=== PATIENT | female | born 1965 | race Caucasian/White ===

== ENCOUNTER 2020-12-28 09:07 | Emergency (ER) | payer OTHER, SELFPAY ==
[2020-12-28 09:25] VITALS: BP 133/81; PULSE 68; RESP 20; TEMP 36.6; O2SAT 100
--- NOTE | 2020-12-28 09:27 | ED.GENADULT ---
HPI - General Adult General Chief complaint: Back Pain/Injury Stated complaint: Wrist Pain Source: patient Mode of arrival: ambulatory Limitations: no limitations History of Present Illness HPI narrative: 55 y/o female. PMH Includes: None reported per client. Presents to [facility] today with acute complaints of RT upper back pain x past 72 hours. 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 She describes 'sharp' intermittent pain located to her RT upper back, worse with activity such as coughing or twisting . No falls or additional injury has been identified. No chest pain, palpitations, dyspnea. No paraesthesia or focal weakness. She is without additional acute complaints upon exam. Related Data Allergies Allergy/AdvReac Type Severity Reaction Status Date / Time ibuprofen [From Motrin] Allergy Dyspnea / Verified 12/28/20 09:29 SOB codeine AdvReac Nausea and Verified 12/28/20 09:29 Vomiting Review of Systems Review of Systems: Narrative: CONSTITUTIONAL: Denies fever, chills, sweats. EYES: Denies visual changes, redness, discharge. ENT: Denies rhinorrhea, congestion, sore throat, otalgia. CARDIOVASCULAR: Denies chest pain, palpitations, edema. RESPIRATORY: Denies dyspnea, wheezing, cough GASTROINTESTINAL: Denies abdominal pain, nausea, vomiting, diarrhea. GENITOURINARY: Denies dysuria, hematuria, abnormal discharge SKIN: Denies rash or itching. MUSCULOSKELETAL: Positive upper back pain. No additional joint pain, or myalgia. NEUROLOGIC: Denies numbness, or focal weakness. PSYCHIATRIC: Denies anxiety or depression. All systems reviewed & are unremarkable except as noted in HPI and below (HPI ) Exam Narrative: Exam Narrative: GENERAL: This is a well-nourished, well-developed patient, in no apparent distress. HEAD: normocephalic, atraumatic. EYES: PERRL. Sclera clear/white. Vision is grossly intact. EARS: External ears normal, auditory canals clear and without drainage, TMs normal without perforation. Hearing grossly intact. NOSE: External nose normal with no obvious nasal discharge, nares without redness, no rhinorrhea. THROAT: Mucous membranes moist, posterior pharynx clear. NECK: Neck supple, non-tender without lymphadenopathy, masses or thyromegaly. CARDIOVASCULAR: Regular rate and rhythm without murmurs, gallops, or rubs. No chest wall tenderness. Pulses preserved RUE, normal. RESPIRATORY: Clear to auscultation. Breath sounds equal bilaterally. No wheezes, rales, or rhonchi. GASTROINTESTINAL: Abdomen soft, non-tender, nondistended. Bowel sounds are active. No hepato-splenomegaly, or palpable masses. No guarding. SKIN: warm, intact with no suspicious lesions or rash, good texture and turgor. NEURO: awake, alert, and oriented to person, place and time. There were no obvious focal neurologic abnormalities. Sensation intact all sites tested. EXTREMITIES: Normal range of motion. No edema. BACK: Without deformity or crepitance. She exhibits reproducible tenderness located to RT cervical region. There is no midline spinal tenderness or abnormality. No nuchal rigidity. Course Course Emergency Course: 55 y/o Female. Acute complaints of RT upper back pain, with noted lifting as mechanism of injury. No neurovascular or bony deficits. Pain is reproducible to area. Physical exam consistent with musculoskeletal injury. Vital Signs Vital signs: Vital Signs Temperature 36.6 C 12/28/20 09:25 Pulse Rate 68 12/28/20 09:25 Respiratory Rate 20 12/28/20 09:25 Blood Pressure 133/81 12/28/20 09:25 Pulse Oximetry 100 12/28/20 09:25 Temperature 36.6 C 12/28/20 09:25 Pulse Rate 68 12/28/20 09:25 Respiratory Rate 20 12/28/20 09:25 Blood Pressure 133/81 12/28/20 09:25 Pulse Oximetry 100 12/28/20 09:25 Medical Decision Making MDM Narrative Medical decision making narrative: Musculoskeletal injury: -NSAID contraindicated:
== END 2020-12-28 10:04 | disposition home or self-care (01) ==
PROVIDERS: Emergency Provider Nurse Practitioner Adult Health; PCP Hospitalist
DX: M62.830 Muscle spasm of back (principal); S29.012A Strain of muscle and tendon of back wall of thorax, initial encounter; X50.0XXA Overexertion from strenuous movement or load, initial encounter
CPT/HCPCS: 99213; G0463

== ENCOUNTER 2025-10-10 07:54 | Outpatient (CLI) | payer BC, SELFPAY ==
--- NOTE | ~2025-10-10 | MMUS_ITS ---
PROCEDURE: US breast biopsy LT w image, MM post biopsy diagnostic LT, US breast bx add lesion LT CLINICAL HISTORY: 59-year-old female with history of left breast mass at 12:00, 2 cm FN previously biopsied with benign pathology however the lesion appears to have changed in the interval. In addition, there is a mass seen on the mammogram in the superior lateral left breast which was evaluated on this visit. Patient presents for ultrasound-guided core needle biopsy procedure. COMPARISON: 09/18/2025 and 09/08/2025 Following informed consent including risks, benefits, and possible complications, the patient was brought to the ultrasound suite. A time-out procedure was performed. A preliminary ultrasound of the left breast was performed, redemonstrating an hypoechoic mass with irregular margins containing biopsy clip located at 12:00, 2 cm from the nipple. In addition there is a 1.2 x 0.7 x 0.8 cm oval-shaped circumscribed hypoechoic mass seen at 2:00, 3 cm from the nipple which correlates to mammographic finding. The decision was made to biopsy both lesions. The patient was prepped and draped in the usual sterile fashion. 1% lidocaine was instilled into the subcutaneous tissues. 1% lidocaine without epinephrine was injected into the deep tissues around the lesion. Approximately 10cc lidocaine was administered. A small skin griselda was made. 4 core samples were obtained from the palpable lesion at 2:00 through a Lateral approach with a 14- gauge biopsy needle. A post biopsy Westwood Martin coil marker was placed at the biopsy site. The patient was prepped and draped in the usual sterile fashion. 1% lidocaine was instilled into the subcutaneous tissues. 1% lidocaine without epinephrine was injected into the deep tissues around the lesion. Approximately 10cc lidocaine was administered. A small skin griselda was made. 4 core samples were obtained from the palpable lesion at 12:00 through a Lateral approach with a 14- gauge biopsy needle. Postprocedural mammogram of the left breast in craniocaudal and mediolateral projections reveal all 2 post biopsy metal markers in good position. The patient tolerated the procedure well and was without immediate postprocedural complications. IMPRESSION: Successful ultrasound guided biopsy of 2 left breast masses. 2 post biopsy metal markers placed at the biopsy sites are in good position, which is seen on postprocedural mammogram. The patient tolerated the procedure well without immediate postprocedure complications. The patient was given postprocedural instructions and sent home in stable condition. Pathology report pending. Reviewed, dictated and finalized at location B. [facility] IMPRESSION: Successful ultrasound guided biopsy of 2 left breast masses. 2 post biopsy metal markers placed at the biopsy sites are in good position, which is seen on postprocedural mammogram. The patient tolerated the procedure well without immediate postprocedure compli cations. The patient was given postprocedural instructions and sent home in sta ble condition. Pathology report pending. IMPRESSION: Successful ultrasound guided biopsy of 2 left breast masses. 2 post biopsy metal markers placed at the biopsy sites are in good position, which is seen on postprocedural mammogram. The patient tolerated the procedure well without immediate postprocedure compli cations. The patient was given postprocedural instructions and sent home in sta ble condition. Pathology report pending.
--- OUTSIDE RECORDS SUMMARY | 2025-10-10 07:57 | XMS_ITS | Encounter Summary ---
Author Organization [facility] Healthcare Address [address] [place] [address] Care Team Providers Care Orthotist Or Prosthetist Name Role Phone Gustabo Ruelas MD Primary Care Provider [phone] Araceli Guillen NP Primary Care Provider Reason for Visit * Reason Onset Date Comments Scheduling Appointments 04/07/2021 Confirmi ng mammogram appt Encounter Details Date Type Department Care Team (Late st Contact Info) Description 04/07/2021 Telephone [facility] [address] [place] [phone] Uyen De La Fuente RT Scheduling Appointments (Confirming mammogram appt) Social History Tobacco Use Types Packs/Day Years Used Date Smoking Tobacco: Heavy Smoker Cigarettes 1 35 Smokeless Tobacco: Never Comments:Smoking History Pac ks/day: 0.5 Packs Alcohol Use Standard Drinks/Week Comments Never 0 (1 standard drink = 0.6 oz pur e alcohol) AUDIT-C Answer Date Recorded Q1: How often do you have a drink containing alc ohol? 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
--- OUTSIDE RECORDS SUMMARY | 2025-10-10 07:57 | XMS_ITS ---
Author Organization [facility] Address [address] [place] [address] Phone Care Team Providers Care Terrazzo Tile Setter Name Role Phone MELIDA BAEBE DO [phone] Problems Includes: Active, inactive, and resolved Problems No Active Problems Plan of Treatment Findings Encounter Date Go to the emergency room if condition worsens WALK IN PATIENT - ESTABLISHED PT with DAVID HARRIS DOORPERSON-BC 05/02/2023 Last Documented On 3 12:51PM ; [facility] Medication instruction WALK IN PATIENT - ESTABLISHED PT with DAVID HARRIS [facility] 05/02/2023 Last Documented On 3 12:51PM ; [facility] Ordered analgesics (non-ster oidal anti-inflammatory agents) WALK IN PATIENT - ESTABLISHED PT with DAVIDRHIANNON HARRIS DOORPERSON-BC 05/02/2023 Last Documented On 3 12:51PM ; [facility] Ordered follow-up visit as n eeded with an office visit. WALK IN PATIENT - ESTABLISHED PT with DAVID HARRIS [facility] 05/02/2023 Last Documented On 3 12:51PM ; [facility] Ordered home range of motion exercises WALK IN PATIENT - ESTABLISHED PT with DAVID HARRIS DOORPERSON-BC 05/02/2023 Last Documented On 3 12:51PM ; [facility] Ordered moist heat WALK IN PATIENT - ES TABLISHED PT with DAVIDRHIANNON HARRIS [facility] 05/02/2023 Last Documented On 3 12:51PM ; [facility] Ordered return to the clinic if condition worsens or new symptoms arise WALK IN PATIENT - ESTABLISHED PT with DAVID HARRIS DOORPERSON-BC 05/02/2023 Last Documented On 3 12:51PM ; [facility] Watch for signs/symptoms of infection WA LK IN PATIENT - ESTABLISHED PT with DAVID HARRIS DOORPERSON-BC 05/02/2023 Last Documented On 3 12:51PM ; [facility] Go to the emergency room if condition worsens WALK IN PATIENT - ESTABLISHED PT with DAVID HARRIS DOORPERSON-BC 07/17/2022 Last Documented On 2 5:08PM ; [facility] Ordered follow-up visit as n eeded with an office visit. WALK IN PATIENT - ESTABLISHED PT with DAVID HARRIS DOORPERSON-BC 07/17/2022 Last Documented On 2 5:08PM ; [facility] Ordered return to the clinic if condition worsens or new symptoms arise WALK IN PATIENT - ESTABLISHED PT with DAVID HARRIS DOORPERSON-BC 07/17/2022 Last Documented On 2 5:08PM ; [facility] Watch for signs/symptoms of infection WA LK IN PATIENT - ESTABLISHED PT with DAVID HARRIS DOORPERSON-BC 07/17/2022 Last Documented On 2 5:08PM ; [facility] Ordered patient will call fo r appointment as needed COVID SICK VISIT- ESTABLISHED PATIENT with DAVID HARRIS DOORPERSON-BC 09/15/2021 Last Documented On 1 9:04AM ; [facility] Ordered return to the clinic if condition worsens or new symptoms arise COVID SICK VISIT- ESTABLISHED PATIENT with DAVID HARRIS DOORPERSON-BC 09/15/2021 Last Documented On 1 9:04AM ; [facility] Pt to use prescription as or dered. Purpose of and use of medication discussed. COVID SICK VISIT- ESTABLISHED PATIENT with VINCE Andersen CHOPRA DOORPERSON-C 05/08/2021 Last Documented On 1 11:36AM ; [facility] Ordered patient to call if p roblem develops COVID SICK VISIT- ESTABLISHED PATIENT with VINCE Andersen [facility] DOORPERSON-C 05/08/2021 Last Documented On 1 11:36AM ; [facility] Ordered return to the clinic if condition worsens or new symptoms arise COVID SICK VISIT- ESTABLISHED PATIENT with VINCEWAYNE CHOPRA DOORPERSON-C 05/08/2021 Last Documented On 1 11:36AM ; [facility] Ordered follow-up visit in 3 -5 days by phone COVID SICK VISIT- ESTABLISHED PATIENT with HELENA MORALEZ DOORPERSON-C 03/13/2021 Last Documented On 1 5:44PM ; [facility] Ordered patient will call [facility] appointment as needed COVID SICK VISIT- ESTABLISHED PATIENT with HELENA MORALEZ DOORPERSON-C 03/13/2021 Last Documented On 1 5:44PM ; [facility] Ordered return to the clinic if condition worsens or new symptoms arise COVID SICK VISIT- ESTABLISHED PATIENT with HELENA MORALEZ DOORPERSON-C 03/13/2021 Last Documented On 1 5:44PM ; [facility] Ordered follow-up visit in 1 -2 weeks with an office visit or sooner if symptoms persist or worsen WALK-IN CLINIC SICK VISIT with DAVID HARRIS [facility] 07/13/2018 Last Documented On 8 4:06PM ; [facility] Ordered patient to call if p teri develops WALK-IN CLINIC SICK VISIT with DAVID HARRIS [facility] 07/13/2018 Last Documented On 8 4:06PM ; [facility] Ordered referred to primary care physician WALK-IN CLINIC SICK VISIT with DAVID HARRIS [facility] 07/13/2018 Last Documented On 8 4:06PM ; [facility] Ordered return to the clinic if condition worsens or new symptoms arise WALK-IN CLINIC SICK VISIT with DAVID HARRIS [facility] 07/13/2018 Last Documented On 8 4:06PM ; [facility] Ordered Transition in care, clinical summary provided WALK-IN CLINIC SICK VISIT with DAVID HARRIS [facility] 07/13/2018 Last Documented On 8 4:06PM ; [facility] Instructions to patient Go to the emergency room if condition worsens Last Documented On 3 12:47PM ; [facility] Watch for signs/symptoms of infection Last Documented On 3 12:47PM ; [facility] Watch for signs/symptoms of infection, return to the clinic if seen Last Documented On 3 12:47PM ; [facility] Go to the emergency room if condition worsens Last Documented On 2 5:04PM ; [facility] Watch for signs/symptoms of infection Last Documented On 2 5:04PM ; [facility] Watch for signs/symptoms of infection, return to the clinic if seen Last Documented On 2 5:03PM ; [facility] Instructions for patient Last Documented On 1 9:02AM ; [facility] Intervention and counseling on cessation of tobacco use Last Documented On 1 8:41AM ; [facility] Go to the emergency room if condition worsens Last Documented On 8 4:03PM ; [facility] Watch for signs/symptoms of infection Last Documented On 8 4:03PM ; [facility] Watch for signs/symptoms of infection, return to the clinic if seen Last Documented On 8 4:03PM ; [facility] Education and Decision Aids were provided during visit for: Patient education about anti biotics: need to finish even if feeling better Last Documented On 8 4:03PM ; [facility] Assessments Includes: Assessments for all patient encounters Findings Encounter Date Acute gouty arthropathy WALK IN PATIENT - ESTABLISHED PT with DAVID HARRIS DOORPERSON-BC 05/02/2023 Last Documented On 3 12:51PM ; [facility] Cerumen impaction in the right ear WALK IN PATIENT - ESTABLISHED PT with DAVID HARRIS DOORPERSON-BC 07/17/2022 Last Documented On 2 5:08PM ; [facility] Acute upper respiratory infection COVID SICK VISIT- ESTABLISHED PATIENT with DAVID HARRIS DOORPERSON-BC 09/15/2021 Last Documented On 1 9:04AM ; [facility] Acute sinusitis COVID SICK VISIT- ES TABLISHED PATIENT with VINCE CHOPRA DOORPERSON-C 05/08/2021 Last Documented On 1 11:36AM ; [facility] Urticaria allergic due to envenomation C OVID SICK VISIT- ESTABLISHED PATIENT with VINCE N CHOPRA DOORPERSON-C 05/08/2021 Last Documented On 1 11:36AM ; [facility] Acute pharyngitis COVID SICK VISIT- ES TABLISHED PATIENT with HELENA MORALEZ DOORPERSON-C 03/13/2021 Last Documented On 1 5:44PM ; [facility] Acute sinusitis WALK-IN CLINIC SICK VISIT with Kamlseh BISMARK HARRIS DOORPERSON-BC 07/13/2018 Last Documented On 8 4:06PM ; [facility] Acute sinusitis WALK-IN CLINIC SICK VISIT with Kamlesh ANAYANathaly Andersen CHOPRA DOORPERSON-C 11/02/2016 Last Documented On 6 3:09PM ; [facility] Assessment of cough WALK-IN CLINIC SICK VISIT with VINCE Andersen CHOPRA DOORPERSON-C 11/02/2016 Last Documented On 6 3:09PM ; [facility] Instructions Includes: Instructions for all patient encounters Instructions to patient Go to the emergency room if condition worsens Last Documented On 3 12:47PM ; [facility] Watch for signs/symptoms of infection Last Documented On 3 12:47PM ; [facility] Watch for signs/symptoms of infection, return to the clinic if seen Last Documented On 3 12:47PM ; [facility] Go to the emergency room if condition worsens Last Documented On 2 5:04PM ; [facility] Watch for signs/symptoms of infection Last Documented On 2 5:04PM ; [facility] Watch for signs/symptoms of infection, return to the clinic if seen Last Documented On 2 5:03PM ; [facility] Instructions for patient Last Documented On 1 9:02AM ; [facility] Intervention and counseling on cessation of tobacco use Last Documented On 1 8:41AM ; [facility] Go to the emergency room if condition worsens Last Documented On 8 4:03PM ; [facility] Watch for signs/symptoms of infection Last Documented On 8 4:03PM ; [facility] Watch for signs/symptoms of infection, return to the clinic if seen Last Documented On 8 4:03PM ; [facility] Education and Decision Aids were provided during visit for: Patient education about anti biotics: need to finish even if feeling better Last Documented On 8 4:03PM ; [facility] Medical Equipment - Implanted Devices Includes: Current and historical Devices No Medical Equipment Recorded Medications Includes: Current and historical Medications Current Medications (continue as prescribed) prednisoLONE 15 MG/5ML Oral Solution 05/02/2023 Provider: DAVID OLMEDO Diagnosis: Idiopathic gout, left ankle and foot take 20 ml daily x 3 days 15 ml daily x 3 days 10 ml daily x 3 days then 5 ml daily x 3 days Last Documented On 3 11:37AM By DAVID OLMEDO ; [facility] Colchicine 0.6 MG Oral Capsule 05/02/2023 Provider: DAVID OLMEDO Diagnosis: Idiopathic gout, left ankle and foot take 2 caps x 1 and another cap one hour later Last Documented On 11:37AM By DAVID OLMEDO ; [facility] Past Medications on file Amoxicillin-Pot Clavulanate 400-57 MG/5ML Oral Suspension Reconstituted 05/08/2021 - 07/17/2022 Provider: VINCE MA Diagnosis: Acute sinusitis, unspecified 10 ml po BID x 10 Last Documented On 07/17/2022 2:15PM By Kassandra Polanco MA ; [facility] Cephalexin 250MG/5ML Oral Suspension Reconstituted 07/13/2018 - 03/13/2021 Provider: DAVID OLMEDO Diagnosis: Acute sinusitis, unspecified as directed Last Documented On 03/13/2021 5:04PM By HÉCTOR SHIN ; [facility] Augmentin 250-62.5 MG/5ML Suspension Reconstituted 11/02/2016 - 03/13/2021 Provider: VINCE MA Diagnosis: Acute sinusitis, unspecified 10 ml po BID Last Documented On 03/13/2021 5:04PM By HÉCTOR SHIN ; [facility] Medications Administered Includes: Administered Medications in patient's chart No Administered Medications Recorded Results Includes: Results from 10/10/2024 through 10/10/2025 No Results Recorded For Specified Dates History of Present Illness History of Present Illness not supported for this document type No History of Present Illness Recorded Social History Description Last Updated Current smoker 05/08/2021 Last Documented On 1 11:36AM ; [facility] No travel 03/13/2021 Last Documented On 1 5:44PM ; [facility] Current nonsmoker 03/13/2021 Last Documented On 1 5:44PM ; [facility] Smoking status : Current everyday smoker 11/02/2016 Last Documented On 6 3:09PM ; [facility] Medical History Includes: Medical History in patient's chart Description Last Updated No Contact with and (Suspected) exposure to COVID-19 05/08/2021 Last Documented On 1 11:36AM ; [facility] No fall 05/08/2021 Last Documented On 11:36AM ; [facility] No exposure to a contagious disease 02/19 Last Documented On 1 5:44PM ; [facility] Family History Includes: Family History in patient's chart Description Last Updated Family history unchanged 09/15/2021 Last Documented On 1 9:04AM ; [facility] Review of Systems Review of Systems not supported for this document type No Review of Systems Recorded Mental Status No Mental Status Recorded Functional Status No Functional Status Recorded Physical Exam Physical Exam not supported for this document type No Physical Exam Recorded Allergies Includes: Active, inactive, and resolved Allergies Substance Type Reaction Onset Date Resolved Date Statu s Motrin IB Allergy 05/02/2023 Active Last Documented On 05/02/2023 11:13AM ; [facility] Note: SOB & FEELS LIKE SHE'S GOING TO PA SS OUT Codeine Allergy 11/02/2016 Active Last Documented On 3 11:12AM ; [facility] Insurance Includes: Active Insurance Policies Plan Name Member ID Group # Subscriber Relationship Effect delmy Dates 1 - [facility] [id number] ALEJANDRA LOPEZ Self Clinical Notes Includes: Signed Clinical Notes starting from 12/09/2022 No Clinical Notes Recorded
--- OUTSIDE RECORDS SUMMARY | 2025-10-10 07:57 | XMS_ITS ---
Care Plan - [facility] Created on: October 10, 2025 ALEJANDRA LOPEZ : 1965 Sex: Female Author Organization [facility] Address [address] [place] [id number] Phone Care Team Providers Care Pipe Fitter Fire Sprinkler Systems Name Role Phone MELIDA ABEBE DO [phone]
--- OUTSIDE RECORDS SUMMARY | 2025-10-10 07:57 | XMS_ITS | Encounter Summary ---
Author Organization [facility] Healthcare Address [address] [place] [address] Care Team Providers Care Finance Associate Name Role Phone Araceli Guillen NP Primary Care Provider [phone] Encounter Details Date Type Department Care Team (Late Contact Info) Description 09/11/2025 Results Follow-Up [facility] [address] [address] Gustabo Ruelas MD [address] [place] [address] SCAN - RADIOLOGY/IMAGING Social History Tobacco Use Types Packs/Day Years Used Date Smoking Tobacco: Former Cigarettes 1 35 Smokeless Tobacco: Never Comments:Smoking History Pac ks/day: 0.5 Packs Alcohol Use Standard Drinks/Week Comments Never 0 (1 standard drink = 0.6 oz pur e alcohol) Social Connection and Isolation Panel Answer Date Recorded In a typical week, how many times do you talk on the phone with family, friends, or neighbors? More than three times a week 11/30/2022 How often do you get togethe r with friends or relatives? More than three times a week 11/30/2022 How often do you attend [facility] or anglican services? Patient declined 11/30/2022 Do you belong to any clubs o r organizations such as jehovah's witness groups, unions, fraternal or athletic groups, or school groups? Patient declined 11/30/2022 How often do you attend meet ings of the clubs or organizations you belong to? Patient declined 11/30/2022 Are you , , di vorced, , never , or living with a partner? 11/30/2022 AUDIT-C Answer Date Recorded Q1: How often do you have a drink containing alc ohol? Never 03/15/2023 Average Number of Drinks Not on file 023 Frequency of Binge Drinking Not on file 02/19 Overall Financial Resource Strain (CARDIA) Answe r Date Recorded How hard is it for you to pa y for the very basics like food, housing, medical care, and heating? Not hard at all 11/30/2022 PHQ-2 Answer Date Recorded PHQ-2 Total Score (If total score is 3 or more points, staff should administer the PHQ-9) 0 01/15/2025 Hunger Vital Sign Answer Date Recorded Within the past 12 months, y ou worried that your food would run out before you got the money to buy more. Never true 11/30/19 23 Within the past 12 months, t he food you bought just didn't last and you didn't have money to get more. Never true 11/30/2022 PRAPARE - Transportation Answer Date Re corded In the past 12 months, has l ack of transportation kept you from medical appointments or from getting medications? No 11/20 In the past 12 months, has l ack of transportation kept you from meetings, work, or from getting things needed for daily living? No 11/30/2022 Comments No Sex and Gender Information Value Date Recorded Sex Assigned at Not on file Legal Sex Female 9:01 AM EPIDEMIOLOGY INTERN Gender Identity Not on file Sexual Orientation Not on file documented as of this encounter Plan of Treatment Not on file documented as of this encounter Visit Diagnoses Not on filedocumented in this encounter Care Teams Finance Associate Relationship Specialty Start Date End Date Araceli Guillen NP [address] [facility] [address] [place] [address] PCP - General Family Medicine 01/15/25 documented as of this encounter
--- OUTSIDE RECORDS SUMMARY | 2025-10-10 07:57 | XMS_ITS | Clinical Summary ---
Author Organization [facility] Address [address] [place] [address] Phone Care Team Providers Care Invas Tech Name Role Phone MELIDA ABEBE DO [phone] Reason for Visit and Chief Complaint The Chief Complaint is: No COIVD exposure, sx of sinuses since Monday/Monday 4- 5d, along with draiange back of throat, clear runny nose and fatigue/tired since yesteray, also woke up this morning with warm spot on side of Rt foot by her heel-poss bug bite Problems Includes: Problems addressed during this encounter and other active Problems No Active Problems Plan of Treatment - Return to the clinic if condition worsens or new symptoms arise - Last Documented On 05/08/2021 11:36AM ; [facility] - Patient to call if problem develops - Last Documented On 05/08/2021 11:36AM ; [facility] Pt to use prescription as ordered. Purpose of and use of medication discussed. . - Last Documented On 05/08/2021 11:36AM ; [facility] Discussed OTC medications as needed for symptoms. Recommended antihistamine, OTC steroid cream and cold compress to insect bite of foot. Follow up if symptoms worsen or do not improve. 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 [L50.0 - Allergic urticaria] - Last Documented On 05/08/2021 11:36AM ; [facility] Medical Equipment - Implanted Devices Includes: Current Devices No Medical Equipment Recorded Medications Includes: Medications discussed during this encounter and other current Medications New / Renewed during this visit VINCE MA on 05/08/2021 Amoxicillin-Pot Clavulanate 400-57 MG/5ML Oral Suspension Reconstituted Provider: VINCE MA 10 day supply: 200 mL, 0 refills Diagnosis: Acute sinusitis, unspecified 10 ml po BID x 10 Pharmacy: [facility] [address], [phone] - Last Documented On 07/17/2022 2:15PM By Kassandra Polanco MA ; [facility] Current Medications (continue as prescribed) prednisoLONE 15 MG/5ML Oral Solution 05/02/2023 Provider: DAVID OLMEDO Diagnosis: Idiopathic gout, left ankle and foot take 20 ml daily x 3 days 15 ml daily x 3 days 10 ml daily x 3 days then 5 ml daily x 3 days Last Documented On 11:37AM By DAVID OLMEDO ; [facility] Colchicine 0.6 MG Oral Capsule 05/02/2023 Provider: DAVID OLMEDO Diagnosis: Idiopathic gout, left ankle and foot take 2 caps x 1 and another cap one hour later Last Documented On 11:37AM By DAVID OLMEDO ; [facility] Medications Administered Includes: Administered Medications from this encounter No Administered Medications Recorded Vital Signs Includes: Vital Signs from this encounter Vital Name 05/08/2021 11:16A Pulse Rate-Sitting (bpm) 84 Temp-Oral (F) 98.5 Oxygen Saturation (%) 95 Last Documented: On 05/08/2021 11:19A M ; [facility] Results Includes: Results discussed during this encounter No Results Recorded For Specified Dates History of Present Illness Includes: History of Present Illness from this encounter SEVERO LOPEZ is a 55 year old female. - Allergy list reviewed - Medication reconciliation performed - Medication list reviewed - Feeling poorly (malaise) - No fever - Headache - Sinus pain - Pain in the cheek - No eye symptoms - The ears feel full - Nasal discharge - Postnasal drip - Nasal passage blockage (stuffiness) - Itchy throat - No ear symptoms - No sneezing - No sore throat - No chest pain or discomfort - Cough dry - Not feeling congested in the chest - No dyspnea - No wheezing - Normal appetite - No nausea - No vomiting - No abdominal pain - No diarrhea - No myalgias - No taste decreased - Skin symptoms right heel with bug bite that is warm/swollen Kristen is here today for congestion, sinus drainage and fatigue x 5 days and her right heel with bug bite. Social History Description Last Updated Current smoker 05/08/2021 Last Documented On 11:36AM ; [facility] Current nonsmoker 03/13/2021 Last Documented On 11:19AM ; [facility] Smoking status : Current everyday smoker 11/02/2016 Last Documented On 11:19AM ; [facility] Procedures and Surgical History Includes: Procedures from this encounter Procedures Code Diagnosis Performing Provider Service L ocation Service Date the options include decongestants such as sudafed or phenylephrine (if history of high blood pressure) as needed per product instructions Last Documented On 11:30AM ; [facility] the options include antihist amines such as claritin/zyrtec/azalia as needed per product instructions Last Documented On 11:30AM ; [facility] Discussed with pt / family t o observe for signs and symptoms of respiratory distress including the following: shortness of breath, increased respiratory rate, wheezing, difficulty breathing, sternal notch/intercostal retractions, and/or accessory muscle use during respiration. Pt / family to call our office to update patient's status if above changes are noted or worsen Last Documented On 11:30AM ; [facility] plan of care reviewed and agreed to Last Documented On 11:30AM ; [facility] patient to call if symptoms worsen or not improved in 5-7 days to update patient's status Last Documented On 11:30AM ; [facility] use of tobacco assessment performed 1000F Last Documented On 11:16AM ; [facility] Clinical summary provided to patient Last Documented On 11:30AM ; [facility] Medical History Includes: Medical History addressed during this encounter Description Last Updated No Contact with and (Suspected) exposure to COVID-19 05/08/2021 Last Documented On 1 11:36AM ; [facility] No fall 05/08/2021 Last Documented On 1 11:36AM ; [facility] Family History Includes: Family History addressed during this encounter No Family History Recorded Review of Systems Includes: Review of Systems from this encounter Systemic: No fever. Head: Headache, sinus pain, and sinus pressure. Eyes: No eye symptoms. Otolaryngeal: No earache and no discharge from the ears. Nasal discharge. No sore throat. Cardiovascular: No cardiovascular symptoms and no chest pain or discomfort. Pulmonary: No dyspnea. Cough. No wheezing. Gastrointestinal: No vomiting, no abdominal pain, and no diarrhea. Musculoskeletal: No musculoskeletal symptoms. Skin: No skin symptoms. Mental Status Includes: Mental Status from this encounter Description Oriented to time, place, and person Functional Status Includes: Functional Status from this encounter No Functional Status Recorded Physical Exam Includes: Physical Exam from this encounter Allergies Includes: Active Allergies Substance Type Reaction Onset Date Resolved Date Statu s Motrin IB Allergy 05/02/2023 Active Last Documented On 05/02/2023 11:13AM ; [facility] Note: SOB & FEELS LIKE SHE'S GOING TO PA SS OUT Codeine Allergy 11/02/2016 Active Last Documented On 3 11:12AM ; [facility] Encounters Encounter Provider Location Date Check-In Time Check-Out Time Diagnosis COVID SICK VISIT- ESTABLISHED PATIENT 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
--- OUTSIDE RECORDS SUMMARY | 2025-10-10 07:57 | XMS_ITS | Clinical Summary ---
Author Organization [facility] Address [address] [place] [address] Phone Care Team Providers Care Editorial Manager Name Role Phone MELIDA ABEBE DO [phone] Reason for Visit and Chief Complaint The Chief Complaint is: PT C/O PRESSURE AND BEING MUFFLED IN THE RIGHT EAR Problems Includes: Problems addressed during this encounter and other active Problems No Active Problems Plan of Treatment - Return to the clinic if condition worsens or new symptoms arise - Last Documented On 07/17/2022 5:08PM ; [facility] - Go to the emergency room if condition worsens - Last Documented On 07/17/2022 5:08PM ; [facility] - Watch for signs/symptoms of infection - Last Documented On 07/17/2022 5:08PM ; [facility] - Follow-up visit as needed with an office visit. - Last Documented On 07/17/2022 5:08PM ; [facility] Pending Tests Order Diagnosis Results Due Ordering Milton echavarria In office procedures - *Family Practice Cerumen (Ear Wax) Removal Impacted cerumen, right ear 07/31/22 [facility]- Last Documented On 2 5:06PM ; [facility] Instructions to patient Go to the emergency room if condition worsens Last Documented On 2 5:04PM ; [facility] Watch for signs/symptoms of infection Last Documented On 2 5:04PM ; [facility] Watch for signs/symptoms of infection, return to the clinic if seen Last Documented On 2 5:03PM ; [facility] Assessments Includes: Assessments from this encounter Findings - Cerumen impaction in the right ear - Last Documented On 07/17/2022 5:08PM ; [facility] Instructions Includes: Instructions from this encounter Instructions to patient Go to the emergency room if condition worsens Last Documented On 2 5:04PM ; [facility] Watch for signs/symptoms of infection Last Documented On 2 5:04PM ; [facility] Watch for signs/symptoms of infection, return to the clinic if seen Last Documented On 2 5:03PM ; [facility] Medical Equipment - Implanted Devices Includes: Current Devices No Medical Equipment Recorded Medications Includes: Medications discussed during this encounter and other current Medications Discontinued / Stopped on this date VINCE MA on 05/08/2021 Amoxicillin-Pot Clavulanate 400-57 MG/5ML Oral Suspension Reconstituted Provider: VINCE MA Diagnosis: Acute sinusitis, unspecified Last Documented On 07/17/2022 2:15PM By Kassandra Polanco MA ; [facility] Current Medications (continue as prescribed) prednisoLONE 15 MG/5ML Oral Solution 05/02/2023 Provider: DAVID OLMEDO Diagnosis: Idiopathic gout, left ankle and foot take 20 ml daily x 3 days 15 ml daily x 3 days 10 ml daily x 3 days then 5 ml daily x 3 days Last Documented On 3 11:37AM By DAVID OLMEDO ; [facility] Colchicine 0.6 MG Oral Capsule 05/02/2023 Provider: DAVID OLMEDO Diagnosis: Idiopathic gout, left ankle and foot take 2 caps x 1 and another cap one hour later Last Documented On 3 11:37AM By DAVID OLMEDO ; [facility] Medications Administered Includes: Administered Medications from this encounter No Administered Medications Recorded Vital Signs Includes: Vital Signs from this encounter Vital Name 07/17/2022 02:16P Blood Pressure Sitting R 118/76 BP Cuff Size Regular Pulse Rate-Sitting (bpm) 74 Respiration Rate (breaths/min) 18 Temp-Oral (F) 98.3 Height (in) 65 Weight (lb) 167.6 Body Mass Index (kg/m2) 27.9 Body Surface Area (m2) 1.8 Oxygen Saturation (%) 97 Last Documented: On 07/17/2022 2:17PM ; [facility] Results Includes: Results discussed during this encounter No Results Recorded For Specified Dates History of Present Illness Includes: History of Present Illness from this encounter HPI MATTHEW LOPEZ is a 56 year old female. - Allergy list reviewed - Medication list reviewed - The ears feel pressured on the right pt to clinic for right ear pressure and decreased hearing Social History Description Last Updated Current smoker 05/08/2021 Last Documented On 2 2:15PM ; [facility] Current nonsmoker 03/13/2021 Last Documented On 2 2:15PM ; [facility] Smoking status : Current everyday smoker 11/02/2016 Last Documented On 2 2:15PM ; [facility] Procedures and Surgical History Includes: Procedures from this encounter Procedures Code Diagnosis Performing Provider Service L ocation Service Date the options include close observation Last Documented On 2 5:03PM ; [facility] watch for signs/symptoms of infection, r eturn to the clinic if seen Last Documented On 2 5:03PM ; [facility] Pt to use prescription as ordered. Purpo se of and use of medication discussed.~ Last Documented On 2 5:03PM ; [facility] plan of care reviewed and agreed to by t he patient Last Documented On 2 4:59PM ; [facility] use of tobacco assessment performed 1000F Last Documented On 2 2:15PM ; [facility] Medical History Includes: Medical History addressed during this encounter No Medical History Recorded Family History Includes: Family History addressed during this encounter Description Last Updated Family history unchanged 09/15/2021 Last Documented On 2 2:15PM ; [facility] Review of Systems Includes: Review of Systems from this encounter Systemic: No fever and no chills. Otolaryngeal: Earache. Mental Status Includes: Mental Status from this encounter No Mental Status Recorded Functional Status Includes: Functional Status from this encounter No Functional Status Recorded Physical Exam Includes: Physical Exam from this encounter Allergies Includes: Active Allergies Substance Type Reaction Onset Date Resolved Date Statu s Motrin IB Allergy 05/02/2023 Active Last Documented On 05/02/2023 11:13AM ; [facility] Note: SOB & FEELS LIKE SHE'S GOING TO PA SS OUT Codeine Allergy 11/02/2016 Active Last Documented On 3 11:12AM ; [facility] Encounters Encounter Provider Location Date Check-In Time Check-Out Time Diagnosis WALK IN PATIENT - ESTABLISHED PT [facility]ID [facility] 07/17/20 22 2:01PM 2:32PM Cerumen Impaction - Right Ear Insurance Includes: Active Insurance Policies Plan Name Member ID Group # Subscriber Relationship Effect delmy Dates 1 - [facility] [id number] ALEJANDRA LOPEZ Self Clinical Notes Includes: Clinical Notes from this encounter No Clinical Notes Recorded
--- OUTSIDE RECORDS SUMMARY | 2025-10-10 07:57 | XMS_ITS | Encounter Summary ---
Author Organization [facility] Address [address] [address] Care Team Providers Care Sales Representative Trainee Name Role Phone Unavailable Primary Care Provider Unavailabl e Encounter Details Date Type Department Care Team (Late st Contact Info) Description 03/12/2025 Lab Requisition [facility] [address] [place] [address] Social History Tobacco Use Types Packs/Day Years Used Date Smoking Tobacco: Never Assessed Comments Unknown Sex and Gender Information Value Date Recorded Sex Assigned at Not on file Legal Sex Female 10:17 AM CDT Gender Identity Not on file Sexual Orientation Not on file documented as of this encounter Plan of Treatment Not on file documented as of this encounter Visit Diagnoses Not on filedocumented in this encounter
--- OUTSIDE RECORDS SUMMARY | 2025-10-10 07:57 | XMS_ITS | Clinical Summary ---
Author Organization [facility] Address [address] [place] [address] Care Team Providers Care Machine Cloth Measurer Name Role Phone Araceli Guillen NP Primary Care Provider [phone] Allergies Active Allergy Reactions Criticality Noted Date Comments Codeine Ibuprofen Other (See comments) Low Faint feeling, heavy chest Pseudoephedrine Medications No known medications Active Problems Problem Noted Date Diagnosed Date Chronic left shoulder pain 01/15/2025 Need for hepatitis C screening test 01/15/2025 Screening for colon cancer 01/15/2025 Need for hepatitis B screening test 01/15/2025 Screening for diabetes mellitus 01/15/2025 Screening, anemia, deficiency, iron 01/15/2025 Screening for thyroid disorder 01/15/2025 Screening for lung cancer 01/15/2025 Annual physical exam 01/14/2025 Actinic keratosis 01/02/2025 Seborrheic keratosis 01/02/2025 Benign neoplasm of skin of lower limb 01/02/2025 Dermatofibroma of left lower extremity Neoplasm of uncertain behavior of skin Sepsis 11/30/2022 UTI (urinary tract infection) 11/30/2022 Hyponatremia 11/30/2022 Thrombocytopenia 11/30/2022 Assessment & Plan (04/04/2023 5:44 PM CDT): Stable, platelets continue to go up and down; continue to check every 6 months Ureterolithiasis 11/29/2022 Assessment & Plan (12/13/2022 1:51 PM SENIOR SQL DATABASE DEVELOPER): Stable, stone passed, nonobstructing left renal stone still present; sewn analysis was 60% calcium phosphate, 40% calcium oxalate monohydrate and dihydrate Will check PTH, urine calcium and urine creatinine as well as CMP today Continue with high fluid intake Overweight with body mass in dex (BMI) of 29 to 29.9 in adult 09/25/2020 Assessment & Plan (01/15/2025 6:18 PM SENIOR SQL DATABASE DEVELOPER): BMI 29.65. Encouraged healthy diet, routine exercise and weight loss Assessment & Plan (09/25/2020 8:37 AM SENIOR SQL DATABASE DEVELOPER): Overall healthy with no major comorbidities due to weight Encouraged healthy eating and evaluation for weight loss if needed Dyslipidemia, goal LDL below 130 09/25/2020 Assessment & Plan (04/04/2023 5:44 PM CDT): Stable, well controlled; near optimal; continue to encourage low-fat high-fiber diet Assessment & Plan (12/13/2022 1:49 PM SENIOR SQL DATABASE DEVELOPER): Stable, well controlled; no current medications Continue to encourage low-fat high-fiber diet Assessment & Plan (09/25/2020 8:37 AM SENIOR SQL DATABASE DEVELOPER): Mildly elevated, however with smoking history patient has medium risk ASCVD score Discussed with patient importance of smoking cessation, and patient given education on how to control cholesterol with lifestyle changes Bronchitis 04/06/2019 Current smoker 12/30/2015 Overview (09/25/2020): One pack per day since age 18 Assessment & Plan (04/04/2023 5:45 PM CDT): Smoking less than 1 pack per day, had quit for 2 weeks on hospital, started smoke again on home; continues to smoke mostly related to habits Encouraged patient continue to look at habitual sinus smoking in working on complete cessation Assessment & Plan (09/25/2020 8:38 AM SENIOR SQL DATABASE DEVELOPER): Discussed with patient importance of smoking cessation, especially to lower risk heart disease Patient understands, but is not quite ready to quit Discussed all medical options available to patient, patient will continue to think and decide if she wants therapies to help with smoking cessation Assessment & Plan (04/06/2019 7:04 PM CDT): Quit Smoking https://smokefree.gov/ Nicotine replacement therapy (NRT) is the most commonly used family of quit smoking medications. NRT reduces withdrawal feelings by giving you a small controlled amount of nicotine?but none of the other dangerous chemicals found in cigarettes. This small amount of nicotine helps satisfy your craving for nicotine and reduces the urge to smoke. NRT can t do all the work. It can help with withdrawal and cravings. But it won t completely take away the urge to smoke. Even if you use NRT to help you stop smoking, quitting can still be hard. Combining NRT with other strategies can improve your chances of quitting and staying quit. To give yourself the best chance for success, explore other quit methods you can combine with medication. Also think about: Developing a quit plan. Using quit programs such as SmokefreeTXT or calling a quitline. Using the Thinkr gricelda for tips and inspiration to help you be smokefree. Prepare, Reduce creavings and Triggers, Reduce stress, Get Active, Eat Healthy Gum, Patches, Inhaler, lozenges, nasal spray or medications like Wellbutrin, Chantix Remind yourself of the rewards of quitting to help yourself stay on track: 20 minutes: heart rate, blood pressure drop 12 hours: carbon monoxide in blood stream drops to normal 2 weeks-3 months: circulation, lung function improve; heart attack risk begins to drop 1-9 months: cough less, breathe easier 1 year: risk of coronary heart disease cut in half 2-5 years: risk of cancer of mouth, throat, esophagus, bladder cut in half; stroke risk is reduced to that of a nonsmoker 10 years: half as likely to from lung cancer; risk of kidney or pancreatic cancer decreases 15 years: risk of coronary heart disease same as non-smoker s risk EXTRA MONEY Resolved Problems Problem Noted Date Diagnosed Date Resolved Date Acute recurrent pansinusitis 04/06/2019 09/25/2020 Assessment & Plan (04/06/2019 7:04 PM CDT): Complete antibiotics and other meds as prescribed Take OTC decongestants for congestion- Sudafed/Mucinex Motrin/Tylenol for pain/fever If you have high blood pressure or any kidney disease use Tylenol only. Take an Antihistamines like Zyrtec or Claritin or Essence daily at bedtime for the next 2-3 weeks. Can take Benadryl at bedtime for the next 3-4 days for immediate relief of runny nose and may help with sinus headache. Try saline nasal spray irrigations 2-4 times a day or try using Jessi pot as directed daily then use your Flonase or other corticosteroid nasal spray every day to decrease the swelling and inflammation in your nasal cavities. Drink plenty of water & get plenty of rest A humidifier may also help with congestion Follow up with your PCP in 3-5 days if you are not getting better Screening status 12/30/2015 09/25/2020 Overview (02/24/2017): Screening Low back pain 12/30/2015 09/25/2020 Overview (02/24/2017): Low back pain without sciatica, unspecified back pain laterality Encounters Date Type Department Care Team Description 09/11/2025 Results Follow-Up [facility] [address] [place] [address] Gustabo Valdivia MD SCAN - RADIOLOGY/IMAGING 09/08/2025 Orders Only [facility] [place] [address] [place] [address] Gustabo Valdivia MD from Last 3 Months Immunizations Immunization Administration Dates Next Due Influenza, Quadrivalent, Spl it, Intramuscular 09/30/2015 Influenza, Trivalent, Preser vative Free, Intramuscular 08/23/2015 Influenza, Unspecified 01/09/2025(Deferr ed: Patient Refused),08/26/2024(Deferred: Patient Refused),03/15/2023(Deferred: Patient Refused),08/31/2022(Deferred: Patient Refused),07/21/2022(Deferred: Patient Refused),07/21/2022(Deferred: Patient Refused),06/08/2022(Deferred: Patient Refused),08/20/2021(Deferred: Patient Refused),08/20/2021(Deferred: Patient Refused),09/25/2020(Deferred: Patient Refused),08/20/2020(Deferred: Patient Refused),11/20/2019(Deferred: Patient Refused) Surgical History Surgery Date Site/Laterality Comments SECTION section BREAST BIOPSY 11/20/2012 - 11/19/2013 Left benign us guided needle bx SECTION x 2 Medical History Medical History Date Comments Calculus of kidney kidney stones Hx Other Medical 2008 Vision Problems Fibrocystic breast Breast cyst Smoking Basal cell carcinoma of skin Bas al cell carcinoma; Comments: TWMeaghan 12/30/2015 - Family History Medical History Relation Name Comments Diabetes Father Diabetes mellit us; Diabetes type II Father Diabetes -T ype II; Hypertension Father Hypertension; Other Father Alive and well; /Kidney problems; Stroke Father Other Mother Alive and well; Breast cancer Mother's Sister espinoza Breast cancer Paternal Grandmother Ovarian cancer Neg Hx Thyroid cancer Neg Hx Relation Name Status Comments Father Alive Mother Alive Mother's Sister espinoza Alive Paternal Grandmother Social History Tobacco Use Types Packs/Day Years Used Date Smoking Tobacco: Former Cigarettes 1 35 Smokeless Tobacco: Never Tobacco Cessation:Counseling Given: Not Answered Comments:Smoking History Packs/day: 0.5 Packs Alcohol Use Standard Drinks/Week Comments [...] week 11/30/2022 How often do you attend chur ch or uatsdin services? Patient declined 11/30/2022 Do you belong to any clubs o r organizations such as baptist groups, unions, fraternal or athletic groups, or [...] on file Legal Sex Female 9:01 AM SENIOR SQL DATABASE DEVELOPER Gender Identity Not on file Sexual Orientation Not on file Obstetrics History Para Term AB IAB SAB Ectopic Multiple Livin g Live Births 4 3 3 1 1 2 Date Outcome GA Total Labor Labor/2nd/3rd Weight Sex Type Anes PTL Hoa A1 A5 Name Clin Term Term Term SAB Last Filed Vital Signs Vital Sign Reading Time Taken Comments Blood Pressure 130/80 01/15/2025 8:01 AM SENIOR SQL DATABASE DEVELOPER Pulse 84 01/15/2025 8:01 AM SENIOR SQL DATABASE DEVELOPER Temperature 36.6 C (97.9 F) 01/15/2025 8:01 AM SENIOR SQL DATABASE DEVELOPER Respiratory Rate 16 03/15/2023 8:06 AM CDT Oxygen Saturation 99% 01/15/2025 8:01 AM SENIOR SQL DATABASE DEVELOPER Inhaled Oxygen Concentration - - Weight 78.4 kg (172 lb 12.8 oz) 01/15/2025 8:01 AM SENIOR SQL DATABASE DEVELOPER Height 162.6 cm (5' 4.02) 01/15/2025 8:01 AM CS T Body Mass Index 29.65 01/15/2025 8:01 AM SENIOR SQL DATABASE DEVELOPER Plan of Treatment Health Maintenance Due Date Last Done Comments Cervical Cancer Screening 1965 DTaP/Tdap/Td Vaccine (1 - Tdap) 1976 Zoster Vaccine (1 of 2) 2015 Breast Cancer Screening-Mammogram 01/28/2024 01/27/2023, 04/06/2022, 04/08/2021, Additional history exists Influenza Vaccine (#1) 2025 09/30/2015, 2014 Colon Cancer Screening-Colonoscopy 01/09/2026 Postponed from 1965 (Provider's clinical decision) Depression Screening 01/15/2026 01/15/2025, 03/15/2023, 12/09/2022, Additional history exists Regular Well Visit/Exam 18-64 01/15/2026 01/15/2025 Colon Cancer Screening-DNA Stool 07/31/2026 07/31/2023 Colon Cancer Screening-FIT Discontinued 07/31/2023 Hepatitis B Screening Completed 01/15/2025 Hepatitis C Screening Completed 01/15/2025 Pneumococcal vaccine <65 Aged Out No longer eligible based on patient's age to complete this topic Procedures Procedure Name Priority Date/Time Associated Diagnosis Comments SCAN - RADIOLOGY/IMAGING 09/08/2025 HEPATITIS C ANTIBODY Routine 01/15/2025 8:40 AM SENIOR SQL DATABASE DEVELOPER Need for hepatitis C screening test HM DNA STOOL Routine 07/31/2023 8:20 AM CDT SCREENING MAMMOGRAM BILATERAL W MATT Schedule Routine, Read Routine (OP Routine) 01/27/2023 7:46 AM SENIOR SQL DATABASE DEVELOPER Encounter for screening mammogram for malignant neoplasm of breast from Last 3 Months or Most Recently Relevant to Health Maintenance Results * SCAN - RADIOLOGY/IMAGING (09/08/2025) Anatomical Region Laterality Modality Other Gustabo Valdivia MD Final Res ult * Hepatitis C antibody Blood (01/15/2025 8:40 AM SENIOR SQL DATABASE DEVELOPER) Hep C Ab Nonreactive Nonreactive Comment: Interpretive Data Nonreactive: Antibodies to HCV not detected. Does NOT exclude the possibility of recent exposure to HCV. Equivocal: Equivocal for HCV antibodies. Supplemental molecular testing will be automatically performed to determine infection status in accordance with current CDC screening recommendations. Reactive: Positive for HCV antibodies. This may represent current or past HCV infection. Supplemental molecular testing will be automatically performed to determine current infection status in accordance with current CDC screening recommendations. Interpretive data was last revised on 2020. Blood 01/15/2025 8:40 AM SENIOR SQL DATABASE DEVELOPER 01/15/2025 1:44 PM SENIOR SQL DATABASE DEVELOPER Araceli Guillen NP LAB MICROBIOLOGY - GENERAL OR DERABLES Final Result Performing Organization Address City/State/[facility] Co de [facility] Number [facility] [address] Department [place] [address] * HM DNA STOOL (07/31/2023 8:20 AM CDT) Historical Provider HEALTH MAINTENANCE Final Result * SCREENING MAMMOGRAM BILATERAL W MATT (01/27/2023 7:46 AM SENIOR SQL DATABASE DEVELOPER) Anatomical Region Laterality Modality Breast Bilateral Mammography 01/27/2023 8:17 AM SENIOR SQL DATABASE DEVELOPER Impressions 01/27/2023 8:17 AM SENIOR SQL DATABASE DEVELOPER There is no mammographic evidence of malignancy. A 1 year screening mammogram is recommended. BI-RADS: 2 - Benign. The patient has been or will be contacted. The patient will be entered into a reminder system with a target due date of 1 year for her next mammogram. Electronically signed by: JOSE HAYDEN Narrative 01/27/2023 8:17 AM SENIOR SQL DATABASE DEVELOPER EXAMINATION: SCREENING MAMMOGRAM BILATERAL W MATT ORDERING HEALTHCARE PROVIDER: GUSTABO VALDIVIA HISTORY: Routine screening mammography. COMPARISON: 04/08/2021, 08/04/2020, 09/27/2019, 08/30/2018, TECHNIQUE: CC and MLO views of both breasts were obtained with digital technique using digital breast tomosynthesis with C view. Computer aided detection was utilized. FINDINGS: DENSITY: The breasts are heterogeneously dense, which may obscure small masses. BREASTS: A biopsy marker clip is unchanged in the left breast. This is located within an unchanged benign mass. There is no new suspicious finding in either breast on mammogram. Gustabo Valdivia MD IMG MAMMO PROCEDURES [place] Result from Last 3 Months or Most Recently Relevant to Health Maintenance [place] Advance [place]ives For more information, please contact: [phone] * Full Code (Latest Code Status on File) Date Activated Date Inactivated Comments 11/29/2022 4:13 PM 12/02/2022 2:30 PM Care Teams Machine Cloth Measurer Relationship Specialty Start Date End Date Araceli Guillen NP [address] [facility] [address] [place] [address] PCP - General Family Medicine 01/15/25
--- OUTSIDE RECORDS SUMMARY | 2025-10-10 07:57 | XMS_ITS | Clinical Summary ---
Author Organization [facility] Address [address] [place] [address] Phone Care Team Providers Care Pharmacy Salesperson Name Role Phone MELIDA ABEBE DO [phone] Reason for Visit and Chief Complaint The Chief Complaint is: Pt symptoms started Monday with headache and runny nose took a home test onMonday was neg Problems Includes: Problems addressed during this encounter and other active Problems No Active Problems Plan of Treatment - Return to the clinic if condition worsens or new symptoms arise - Last Documented On 09/15/2021 9:04AM ; [facility] - Patient will call for appointment as needed - Last Documented On 09/15/2021 9:04AM ; [facility] Instructions to patient Instructions for patient Last Documented On 9:02AM ; [facility] Intervention and counseling on cessation of tobacco use Last Documented On 8:41AM ; [facility] Assessments Includes: Assessments from this encounter Findings - Acute upper respiratory infection - Last Documented On 09/15/2021 9:04AM ; [facility] Instructions Includes: Instructions from this encounter Instructions to patient Instructions for patient Last Documented On 9:02AM ; [facility] Intervention and counseling on cessation of tobacco use Last Documented On 8:41AM ; [facility] Medical Equipment - Implanted Devices Includes: Current Devices No Medical Equipment Recorded Medications Includes: Medications discussed during this encounter and other current Medications Current Medications (continue as prescribed) prednisoLONE 15 MG/5ML Oral Solution 05/02/2023 Provider: DAVID OLMEDO Diagnosis: Idiopathic gout, left ankle and foot take 20 ml daily x 3 days 15 ml daily x 3 days 10 ml daily x 3 days then 5 ml daily x 3 days Last Documented On 3 11:37AM By DAVID OLMEDO ; [facility] Colchicine 0.6 MG Oral Capsule 05/02/2023 Provider: DAVID OLMEDO Diagnosis: Idiopathic gout, left ankle and foot take 2 caps x 1 and another cap one hour later Last Documented On 3 11:37AM By DAVID OLMEDO ; [facility] Medications Administered Includes: Administered Medications from this encounter No Administered Medications Recorded Vital Signs Includes: Vital Signs from this encounter Vital Name 09/15/2021 08:39A Pulse Rate-Sitting (bpm) 104 Respiration Rate (breaths/min) 20 Temp-Oral (F) 98.8 Oxygen Saturation (%) 99 Last Documented: On 09/15/2021 8:41AM ; [facility] Results Includes: Results discussed during this encounter Rapid COVID Test [facility] Ordered by DAVID OLMEDO on Collected: Reported: 09/15/2021 08:44 Last Documented On 8:44AM ; [facility] Reviewed on 09/15/2021; All test results are final unless otherwise noted. Rapid COVId neg N (Normal) Last Documented On 8:44AM ; [facility] Int. QC Acceptable yes N (Normal) Last Documented On 8:44AM ; [facility] Lot # and Exp. Date [id number] N (Normal) Last Documented On 8:44AM ; [facility] History of Present Illness Includes: History of Present Illness from this encounter SEVERO LOPEZ is a 55 year old female. Source of patient information was patient ? Allergy list reviewed ? Problem list reviewed ? Medication reconciliation performed - Duration of symptoms - Previously well - No fever - No chills - Headache associated with head congestion - No sinus pain - No sinus pressure - No swollen glands in the neck - No itching of the eyes - No discharge from the eyes - Nasal discharge - No earache - The ears do not feel pressured - The ears do not feel full - No discharge from the ears - No postnasal drip - No nasal passage blockage (stuffiness) - No sneezing - No sore throat - No itchy throat - No chest pain or discomfort - No palpitations - Cough - Not feeling congested in the chest - No dyspnea - No wheezing - No rash pt to clinic for above symptoms x 3 days she has been taking mucinex and using flonase no covid contacts Social History Description Last Updated Current smoker 05/08/2021 Last Documented On 1 8:39AM ; [facility] Current nonsmoker 03/13/2021 Last Documented On 8:39AM ; [facility] Smoking status : Current everyday smoker 11/02/2016 Last Documented On 8:39AM ; [facility] Procedures and Surgical History Includes: Procedures from this encounter Procedures Code Diagnosis Performing Provider Service L ocation Service Date plan of care reviewed and agreed to by the patient Last Documented On 9:02AM ; [facility] intervention and counseling 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 4000F Last Documented On 8:41AM ; [facility] use of tobacco assessment performed 1000F Last Documented On 8:41AM ; [facility] review of medications documented 1160F Last Documented On 8:41AM ; [facility] Patient verbalizes understanding Last Documented On 9:02AM ; [facility] Increase fluids Last Documented On 9:02AM ; [facility] Clinical summary provided to patient Last Documented On 9:02AM ; [facility] Medical History Includes: Medical History addressed during this encounter No Medical History Recorded Family History Includes: Family History addressed during this encounter Description Last Updated Family history unchanged 09/15/2021 Last Documented On 9:04AM ; [facility] Review of Systems Includes: Review of Systems from this encounter Systemic: No edema. Head: Headache. Cardiovascular: No chest pain or discomfort. Pulmonary: No shortness of breath. Neurological: No dizziness. Mental Status Includes: Mental Status from this encounter Description Oriented to time, place, and person Functional Status Includes: Functional Status from this encounter No Functional Status Recorded Physical Exam Includes: Physical Exam from this encounter Allergies Includes: Active Allergies Substance Type Reaction Onset Date Resolved Date Statu s Motrin IB Allergy 05/02/2023 Active Last Documented On 05/02/2023 11:13AM ; [facility] Note: SOB & FEELS LIKE SHE'S GOING TO PA SS OUT Codeine Allergy 11/02/2016 Active Last Documented On 3 11:12AM ; [facility] Encounters Encounter Provider Location Date Check-In Time Check-Out Time Diagnosis COVID SICK VISIT- ESTABLISHED PATIENT DAVID HARRIS SCRIPT READER-BC [facility] 09/15/20 21 8:29AM 8:55AM Upper Respiratory Infection Acute Insurance Includes: Active Insurance Policies Plan Name Member ID Group # Subscriber Relationship Effect delmy Dates 1 - [facility] [id number] ALEJANDRA LOPEZ Self Clinical Notes Includes: Clinical Notes from this encounter No Clinical Notes Recorded
--- OUTSIDE RECORDS SUMMARY | 2025-10-10 07:57 | XMS_ITS | Clinical Summary ---
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 Name Role Phone MELIDA ABEBE DO [phone] Reason for Visit and Chief Complaint The Chief Complaint is: Left great toe pain since yesterday morning Problems Includes: Problems addressed during this encounter and other active Problems No Active Problems Plan of Treatment - Return to the clinic if condition worsens or new symptoms arise - Last Documented On 05/02/2023 12:51PM ; [facility] - Go to the emergency room if condition worsens - Last Documented On 05/02/2023 12:51PM ; [facility] - Watch for signs/symptoms of infection - Last Documented On 05/02/2023 12:51PM ; [facility] - Medication instruction - Last Documented On 05/02/2023 12:51PM ; [facility] - Analgesics (non-steroidal anti-inflammatory agents) - Last Documented On 05/02/2023 12:51PM ; [facility] - Moist heat - Last Documented On 05/02/2023 12:51PM ; [email or web address] - Home range of motion exercises - Last Documented On 05/02/2023 12:51PM ; [facility] - Follow-up visit as needed with an office visit. - Last Documented On 05/02/2023 12:51PM ; [facility] [[email or web address]] Instructions to patient Go to the emergency room if condition worsens Last Documented On 12:47PM ; [facility] Watch for signs/symptoms of infection Last Documented On 12:47PM ; [facility] Watch for signs/symptoms of infection, return to the clinic if seen Last Documented On 12:47PM ; [facility] Assessments Includes: Assessments from this encounter Findings - Acute gouty arthropathy - Last Documented On 05/02/2023 12:51PM ; [facility] Instructions Includes: Instructions from this encounter Instructions to patient Go to the emergency room if condition worsens Last Documented On 3 12:47PM ; [facility] Watch for signs/symptoms of infection Last Documented On 3 12:47PM ; [facility] Watch for signs/symptoms of infection, return to the clinic if seen Last Documented On 3 12:47PM ; [facility] Medical Equipment - Implanted Devices Includes: Current Devices No Medical Equipment Recorded Medications Includes: Medications discussed during this encounter and other current Medications New / Renewed during this visit DAVID OLMEDO on 05/02/2023 prednisoLONE 15 MG/5ML Oral Solution Provider: DAVID OLMEDO 12 day supply: 175 mL, 0 refills Diagnosis: Idiopathic gout, left ankle and foot take 20 ml daily x 3 days 15 ml daily x 3 days 10 ml daily x 3 days then 5 ml daily x 3 days Pharmacy: [address], [phone] - Last Documented On 3 11:37AM By DAVID OLMEDO ; [facility] Colchicine 0.6 MG Oral Capsule Provider: DAVID OLMEDO 1 day supply: 3 capsule, 0 refills Diagnosis: Idiopathic gout, left ankle and foot take 2 caps x 1 and another cap one hour later Pharmacy: [address], [phone] - Last Documented On 3 11:37AM By DAVID OLMEDO ; [facility] Medications Administered Includes: Administered Medications from this encounter No Administered Medications Recorded Vital Signs Includes: Vital Signs from this encounter Vital Name 05/02/2023 11:13A Blood Pressure Sitting L 122/76 BP Cuff Size Regular Pulse Rate-Sitting (bpm) 85 Pulse Rhythm Regular Respiration Rate (breaths/min) 21 Temp-Oral (F) 98.7 Height (in) 64.5 Weight (lb) 171.4 Body Mass Index 29 Body Surface Area 1.8 Oxygen Saturation (%) 98 Last Documented: On 05/02/2023 11:15A M ; [facility] Results Includes: Results discussed during this encounter No Results Recorded For Specified Dates History of Present Illness Includes: History of Present Illness from this encounter SEVERO LOPEZ is a 57 year old female. - Allergy list reviewed - Medication list reviewed - Feeling fine - No chest pain or discomfort - No dyspnea - No cough - No abdominal pain pt to clinic for left great toe pain x 2 days no injury Social History Description Last Updated Current smoker 05/08/2021 Last Documented On 3 11:13AM ; [facility] Current nonsmoker 03/13/2021 Last Documented On 3 11:13AM ; [facility] Smoking status : Current everyday smoker 11/02/2016 Last Documented On 3 11:13AM ; [facility] Procedures and Surgical History Includes: Procedures from this encounter Procedures Code Diagnosis Performing Provider Service L ocation Service Date the options include close observation Last Documented On 3 12:47PM ; [facility] [[email or web address]] watch for signs/symptoms of infection, r eturn to the clinic if seen Last Documented On 3 12:47PM ; [facility] Pt to use prescription as ordered. Purpo se of and use of medication discussed.~ Last Documented On 3 12:47PM ; [facility] plan of care reviewed and agreed to by t he patient Last Documented On 3 12:33PM ; [facility] use of tobacco assessment performed 1000F Last Documented On 3 11:13AM ; [facility] [[email or web address]] Increase fluids Last Documented On 3 12:47PM ; [facility] Medical History Includes: Medical History addressed during this encounter No Medical History Recorded Family History Includes: Family History addressed during this encounter Description Last Updated Family history unchanged 09/15/2021 Last Documented On 3 11:13AM ; [facility] Review of Systems Includes: Review of Systems from this encounter Systemic: No fever and no chills. Musculoskeletal: Pain localized to one or more joints. Mental Status Includes: Mental Status from this encounter No Mental Status Recorded Functional Status Includes: Functional Status from this encounter No Functional Status Recorded Physical Exam Includes: Physical Exam from this encounter Allergies Includes: Active Allergies Substance Type Reaction Onset Date Resolved Date Statu s Motrin IB Allergy 05/02/2023 Active Last Documented On 05/02/2023 11:13AM ; [facility] Note: SOB & FEELS LIKE SHE'S GOING TO PA SS OUT Codeine Allergy 11/02/2016 Active Last Documented On 3 11:12AM ; [facility] [[email or web address]] Encounters Encounter Provider Location Date Check-In Time Check-Out Time Diagnosis WALK IN PATIENT - ESTABLISHED PT DAVID OLMEDO [facility] 05/02/20 11:08AM 11:29AM Gouty Arthropathy Acute Insurance Includes: Active Insurance Policies Plan Name Member ID Group # Subscriber Relationship Effect delmy Dates 1 - [facility] [id number] ALEJANDRA LOPEZ Self Clinical Notes Includes: Clinical Notes from this encounter * Progress note Date Encounter Last Documented by 05/02/2023 WALK IN PATIENT - ESTABLISHED PT Last documented on 05/02/2023; 12:51 PM, DAVID OLMEDO; [facility] [[email or web address]] Active Problems & Conditions - No Active Problems Chief Complaint The Chief Complaint is: Left great toe pain since yesterday morning. History of Present Illness ALEJANDRA LOPEZ is a 57 year old female. - Allergy list reviewed - Medication list reviewed - Feeling fine - No chest pain or discomfort - No dyspnea - No cough - No abdominal pain pt to clinic for left great toe pain x 2 days no injury Social History Tobacco use: Current smoker, current nonsmoker, and smoking status: Current everyday smoker. Allergies - Codeine - Motrin IB Family History Family history unchanged Review Of Systems Systemic: No fever and no chills. Musculoskeletal: Pain localized to one or more joints. Physical Findings - Vitals taken 05/02/2023 11:13 am BP-Sitting L 122/76 mmHg BP Cuff Size Regular Pulse Rate-Sitting 85 bpm Pulse Rhythm Regular Respiration Rate 21 per min Temp-Oral 98.7 F Height 64.5 in Weight 171 lbs 6.4 oz Body Mass Index 29 kg/m2 Body Surface Area 1.8 m2 Oxygen Saturation 98 % General Appearance: - Well-appearing. - Well developed. - Well nourished. Eyes: General/bilateral: Extraocular Movements: - Normal. Pupils: - PERRLA. Lungs: - Clear to auscultation. Cardiovascular: Heart Rate And Rhythm: - Normal. Musculoskeletal System: Toes: Toes Of The Left Foot: - Tophus of the first toe swollen and tender no cellulitis. Assessment - Acute gouty arthropathy Therapy - The options include close observation. - Increase fluids. - Watch for signs/symptoms of infection, return to the clinic if seen. - Plan of care reviewed and agreed to by the patient. Pt to use prescription as ordered. Purpose of and use of medication discussed. . Plan StartCited - Idiopathic gout, left ankle and foot prednisoLONE 15 MG/5ML mL take 20 ml daily x 3 days 15 ml daily x 3 days 10 ml daily x 3 days then 5 ml daily x 3 days, 12 days, 0 refills Colchicine 0.6 MG capsule take 2 caps x 1 and another cap one hour later, 1 days, 0 refills EndCited - Return to the clinic if condition worsens or new symptoms arise - Go to the emergency room if condition worsens - Watch for signs/symptoms of infection - Medication instruction - Analgesics (non-steroidal anti-inflammatory agents) - Moist heat - Home range of motion exercises - Follow-up visit as needed with an office visit. Practice Management Use of tobacco assessment performed. Health Reminders - Assess BMI satisfied 05/02/2023. - Assess Tobacco Use satisfied 05/02/2023.
--- OUTSIDE RECORDS SUMMARY | 2025-10-10 07:57 | XMS_ITS | Encounter Summary ---
Author Organization [facility] Address [address] [place] [address] Care Team Providers Care Mill Controller Name Role Phone Unavailable Primary Care Provider Unavailabl e Encounter Details Date Type Department Care Team (Late st Contact Info) Description 03/12/2025 Lab Requisition [facility] - DermPath Lab [address] [place] [address] Morris Anderson MD [facility] [address] Social History Tobacco Use Types Packs/Day Years Used Date Smoking Tobacco: Never Assessed Comments Unknown Sex and Gender Information Value Date Recorded Sex Assigned at Not on file Legal Sex Female 10:17 AM CDT Gender Identity Not on file Sexual Orientation Not on file documented as of this encounter Plan of Treatment Not on file documented as of this encounter Procedures Procedure Name Priority Date/Time Associated Diagnosis Comments DERMATOPATHOLOGY Routine 03/11/2025 12:0 0 AM CDT documented in this encounter Results * DERMATOPATHOLOGY (03/11/2025 12:00 AM CDT) Case Report Dermatopathology Report Case: [id number] Authorizing Provider: Morris Anderson MD Collected: 03/11/2025 12:00 AM Ordering Location: [facility] - Received: 03/12/2025 10:49 AM DermPath Lab Pathologist: Sandrita Viramontes MD Specimen: Skin, left lower back 2:34 PM CDT DERMATOPATHOLOGY LABORATORY Final Diagnosis Specimen A. SKIN, left lower back: LENTIGINOUS MELANOCYTIC NEVUS, JUNCTIONAL TYPE, IRRITATED (D22.5) NOT PRESENT AT SAMPLED MARGIN 2:34 PM CDT DERMATOPATHOLOGY LABORATORY at 1434 CDT Clinical History Nevus; R/O Melanoma Please check margins 2:34 PM CDT DERMATOPATHOLOGY LABORATORY Gross Description Specimen A: Received is one formalin filled container labeled with the patient's name and designated left lower back. The specimen consists of a shave biopsy measuring 10x6x1 mm. Jar 0. 2:34 PM CDT DERMATOPATHOLOGY LABORATORY Microscopic Description Specimen A. SKIN, left lower back: This is a junctional nevus. There is melanin pigment in the stratum corneum. There is a lentiginous proliferation of melanocytes between nests of cells along the dermal-epidermal junction. There is underlying fibroplasia of the papillary dermis. (Junctional Jonathan's Nevus) This lesion is not present at the sampled margin of the specimen. 2:34 PM CDT DERMATOPATHOLOGY LABORATORY Disclaimer An external and internal positive and negative controls are appropriate for the histochemical, immunohistochemical and immunofluorescence stain(s) in this case (if any), except where stated explicitly. The performance characteristics of the stain(s) cited in this report were developed and its performance characteristic determined by the Dermatopathology Laboratory at [facility], directed by Dr. Alicia Lazo. These tests need not be, and therefore are not, approved by the [place] Food and Drug Administration. The tests are used for clinical purposes. Billing Codes Specimen Charges Stain Charges 04703 1 2:34 PM CDT DERMATOPATHOLOGY LABORATORY Embedded Images 2:34 PM CDT DERMATOPATHOLOGY LABORATORY Pathology/Cytolog y TISSUE SPECIMEN FROM SKIN / Unknown 03/11/2025 03/12/2025 10:49 AM CDT us Morris Anderson MD LAB - PATHOLOGY/CYTOLOGY ORDERAB LES Final Result DERMATOPATHOLOGY LABORATORY [facility] - Department of Dermatology [address] [place] [address], [facility] [phone] documented in this encounter Visit Diagnoses Not on filedocumented in this encounter
--- OUTSIDE RECORDS SUMMARY | 2025-10-10 07:57 | XMS_ITS | Clinical Summary ---
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 She has had a sore throat and sinus drainage that started last night and seems to have worsened today Problems Includes: Problems addressed during this encounter and other active Problems No Active Problems Plan of Treatment - Return to the clinic if condition worsens or new symptoms arise - Last Documented On 03/13/2021 5:44PM ; [facility] - Follow-up visit in 3-5 days by phone - Last Documented On 03/13/2021 5:44PM ; [facility] - Patient will call for appointment as needed - Last Documented On 03/13/2021 5:44PM ; [facility] Assessments Includes: Assessments from this encounter Findings - Acute pharyngitis [Acute pharyngitis, unspecified] - Last Documented On 03/13/2021 5:44PM ; [facility] Medical Equipment - Implanted Devices Includes: Current Devices No Medical Equipment Recorded Medications Includes: Medications discussed during this encounter and other current Medications Discontinued / Stopped on this date DAVID HARRIS [employer] on 07/13/2018 Cephalexin 250MG/5ML Oral Suspension Reconstituted Provider: DAVID Mccarty [employer] Diagnosis: Acute sinusitis, unspecified Last Documented On 03/13/2021 5:04PM By HÉCTOR SHIN ; [facility] Augmentin 250-62.5 MG/5ML Suspension Reconstituted Provider: VINCE FRAGA [employer] Diagnosis: Acute sinusitis, unspecified Last Documented On 03/13/2021 5:04PM By HÉCTOR SHIN ; [facility] Current Medications (continue as prescribed) prednisoLONE 15 MG/5ML Oral Solution 05/02/2023 Provider: DAVID OLMEDO Diagnosis: Idiopathic gout, left ankle and foot take 20 ml daily x 3 days 15 ml daily x 3 days 10 ml daily x 3 days then 5 ml daily x 3 days Last Documented On 3 11:37AM By DAVID OLMEDO ; [facility] Colchicine 0.6 MG Oral Capsule 05/02/2023 Provider: DAVID OLMEDO Diagnosis: Idiopathic gout, left ankle and foot take 2 caps x 1 and another cap one hour later Last Documented On 3 11:37AM By DAVID OLMEDO ; [facility] Medications Administered Includes: Administered Medications from this encounter No Administered Medications Recorded Vital Signs Includes: Vital Signs from this encounter Vital Name 03/13/2021 05:04P Pulse Rate-Sitting (bpm) 77 Temp-Oral (F) 98.3 Oxygen Saturation (%) 98 Last Documented: On 03/13/2021 5:04PM ; [facility] Results Includes: Results discussed during this encounter Group A strep [facility] Ordered by HELENA MA on 0 03/13/2021 Collected: Reported: 03/13/2021 17:25 Last Documented On 5:26PM ; [facility] Reviewed on 03/13/2021; All test results are final unless otherwise noted. Rapid Strep NEGATIVE N (Normal) Last Documented On 5:25PM ; [facility] LOT # AND EXP. DATE [id number] 10/08/2022 N (Normal) Last Documented On 1 5:25PM ; [facility] INT. QC ACCEPTABLE? YES N (Normal) Last Documented On 1 5:25PM ; [facility] History of Present Illness Includes: History of Present Illness from this encounter SEVERO LOPEZ is a 55 year old female. - Allergy list reviewed - Medication reconciliation performed - Feeling fine - Not feeling tired - Not feeling poorly (malaise) - No fever - No chills - No headache - No sinus pain - No swollen glands in the neck - No eye symptoms - Nasal discharge - Nasal passage blockage (stuffiness) - Sore throat - No ear symptoms - No postnasal drip - No chest pain or discomfort - No chest tightness or heavy pressure - No palpitations - No dyspnea - No cough - No wheezing - Normal appetite - Appetite not decreased - No nausea - No vomiting - No abdominal pain - No diarrhea - No myalgias - No anosmia - No unpleasantly altered taste - No skin symptoms Patient is a 55 year old female that presents to the respiratory clinic for c/o nasal congestion/drainage and sore throat. symptoms started last night. Her granddaughter had strep this week so she wants to make sure she doesn't have strep. Denies any known direct exposure to COVID. Social History Description Last Updated No travel 03/13/2021 Last Documented On 5:44PM ; [facility] Current nonsmoker 03/13/2021 Last Documented On 5:44PM ; [facility] Smoking Status Unknown Procedures and Surgical History Includes: Procedures from this encounter Procedures Code Diagnosis Performing Provider Service L ocation Service Date Discussed with family that current strep testing is NEGATIVE. Pt /family with be notified if further testing reveals positive strep pharyngitis. Discussed with pt /family the etiology, natural course, possible complications, and treatment options for pharyngitis. Recommended OTC therapy with pain/fever control products, topical products (lozenges/sprays/narciso les) as needed per global process owner's recommendation. Recommended for pt/ family to call/return to office with follow up if pt persits with greater than 5 days of symptoms, worsens, or as otherwise directed. Discussed with pt / family that is pt contagious until fever free for at least 24 hours. Return to activities when pt feels well and fever free for 24 hours. Observe pt contacts for signs/symptoms of illness Last Documented On 5:44PM ; [facility] review of medications documented 1160F Last Documented On 5:05PM ; [facility] Patient verbalizes understanding Last Documented On 5:44PM ; [facility] Increase fluids Last Documented On 5:44PM ; [facility] Clinical summary provided to patient Last Documented On 5:44PM ; [facility] Medical History Includes: Medical History addressed during this encounter Description Last Updated No exposure to a contagious disease 02/19 Last Documented On 1 5:44PM ; [facility] No Contact with and (Suspected) exposure to COVID-19 No 03/13/2021 Last Documented On 1 5:44PM ; [facility] No fall No 03/13/2021 Last Documented On 1 5:44PM ; [facility] Family History Includes: Family History addressed during this encounter No Family History Recorded Review of Systems Includes: Review of Systems from this encounter Systemic: No systemic symptoms and no fever. Head: No head symptoms. Neck: No neck symptoms. Eyes: No eye symptoms. Otolaryngeal: Nasal discharge, nasal passage blockage (stuffiness), and sore throat. Cardiovascular: No cardiovascular symptoms. Pulmonary: No pulmonary symptoms. Gastrointestinal: No gastrointestinal symptoms. Genitourinary: No genitourinary symptoms. Endocrine: No endocrine symptoms. Hematologic: No hematologic symptoms. Musculoskeletal: No musculoskeletal symptoms. Neurological: No neurological symptoms. Psychological: No psychological symptoms. Skin: No skin symptoms. Mental Status Includes: Mental Status from this encounter No Mental Status Recorded Functional Status Includes: Functional Status from this encounter No Functional Status Recorded Physical Exam Includes: Physical Exam from this encounter Allergies Includes: Active Allergies Substance Type Reaction Onset Date Resolved Date Statu s Motrin IB Allergy 05/02/2023 Active Last Documented On 05/02/2023 11:13AM ; [facility] Note: SOB & FEELS LIKE SHE'S GOING TO PA SS OUT Codeine Allergy 11/02/2016 Active Last Documented On 3 11:12AM ; [facility] Encounters Encounter Provider Location Date Check-In Time Check-Out Time Diagnosis COVID SICK VISIT- ESTABLISHED PATIENT HELENA Willoughby KIRT [employer] [facility] 03/13/20 21 4:38PM 5:12PM Pharyngitis Acute Insurance Includes: Active Insurance Policies Plan Name Member ID Group # Subscriber Relationship Effect delmy Dates 1 - [facility] [id number] ALEJANDRA LOPEZ Self Clinical Notes Includes: Clinical Notes from this encounter No Clinical Notes Recorded
--- OUTSIDE RECORDS SUMMARY | 2025-10-10 07:57 | XMS_ITS | Data Portability ---
Author Organization [facility], Main Office Address [address] [facility] [address] [place] [address] Assessment No assessment recorded. Plan of Treatment Reminders Order Date Submit Date Provider Last Modified By Organization Details Last Modified Time Details Appointments PROCEDURE 30 2024 08:30A M Dr. Anderson Not available Not available Not available Lab None recorded. Referral None recorded. Procedures None recorded. Surgeries None recorded. Imaging None recorded. Medication Orders None recorded. Patient TargetsNo targets recorded. Patient Instructions Encounter Date Encounter Id Patient Instructions Last Modified By Organization Details Last Modified Time 01/03/2025 [id number] SP L L BACK AKS NO TX TODAY- R BROW, R MALAR CHEEK, L MEDIAL CHEEK [email or web address] Not available 01/03/2025 10:26:13 Reason for Referral None Reported. 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 2024 Morris Anderson MD [address] [facility] [address], [place], [phone], [facility] 5 10:25:41 Actinic keratosis 467129242 Active 2024 Morris Anderson MD [address] [facility] [address], [place], [address], [facility] 5 10:25:50 Seborrheic keratosis 836415929 Active 2024 Morris Anderson MD [address] [facility] [address], [place], [address], [facility] 10:26:38 Benign neoplasm of skin of lower limb 55237935 Active 2024 Morris Anderson MD [address] [facility] [address], [place], [address], [facility] 10:26:53 Dermatofibr dylon of left lower limb 1741573630454 105 Active 2024 Morris Anderson MD [address] [facility] [address], [place], [address], [facility] 10:27:01 Problem Notes None recorded. Medical Equipment None Reported. Medications Name Sig Start Date Stop Date Status Note LastModified by Organization Details LastModified Time cyclobenzaprine 10 mg tablet TAKE 1 TABLET BY MOUTH THREE TIMES DAILY NEEDED FOR MUSCLE SPASM active Not Available Not Available No t Available prednisone 20 mg tablet TAKE 2 TABLETS BY MOUTH DAILY active Not Available Not Available No t Available amoxicillin 400 mg-potassium clavulanate 57 mg/5 mL oral suspension TAKE 11 ML BY MOUTH EVERY 12 HOURS FOR 10 DAYS active Not Available Not Available No t Available Vitals None Recorded Social History None recorded. Functional Status None recorded. Mental Status None recorded. Family History Nothing Reported. Medical History No medical history recorded. Gynecological HistoryNo gynecological history recorded. Obstetrics History GPAL:G 0 P 0 0 0 0 Past Encounters Encounter ID Performer Location Encounter Start Date Encounter Closed Date Diagnosis/Indication Diagnosis SNOMED-CT Code Diagnosis ICD10 Code Diagnosis IMO Codes Diagnosis Note [id number] Morris Anderson MD Main Office [address] [facility] [address] [place] [phone] 01/03/2025 10:07:48 01/03/2025 10:29:22 Neoplasm of uncertain behavior of skin 80164784 D48.5 Actinic keratosis 007 L57.0 Seborrheic keratosis 394 639885 L82.1 Benign zo plasm of skin of lower limb 90494998 D23.71 Dermatofib angelique of left lower limb 2582519281 276782 D23.72 History of malignant neoplasm of skin 120354940 Z85.828 Health Concerns Section Related Observation LastModified by Organization Detai ls LastModified Time None Recorded Concern Status LastModified by Organization Details LastModified Time None Recorded Advance Directives Directive None Recorded Payers Insurance Date Sequence Insurance Name Policy Number Policy Shearer Covered Member ID Shearer Member ID Guarantor Name 01/03/2025 1 [employer] [id number] Rolly Claire [id number] Iris Claire 09/07/2025 1 [place] [id number] Iris Claire [id number] Iris Claire Notes Date Note Type Note Provider Name and Address Organization Details Recorded Time 04/14/2021 text/html x of NMSC. LUE. chk top l shoulder. 6-8 mos. PAST MEDICAL HISTORY: See intake form, reviewed and scanned. Not Available Not Available Not Available 05/21/2021 text/html Kristen Claire is here for a biopsy of pigmented papule on the right shoulder top medial and a red erosion with eschar on the left shoulder, top lateral. Rule out NMSCs. Second, rule out SK versus pigmented AK versus melanocytic lesion on the right lesion. Not Available Not Available Not Available 01/03/2025 text/html SKIN CHECK. HX OF NMSC OF THE L SHOULDER, AND extensive sun damage.PMFSH,ROS- see initial intake form, revd Morris Anderson MD [address] [facility] [address], [place], [address], [facility] [place] [facility] 01/03/2025 10:28:59 OBGyn Episode No OBEpisode recorded.
--- OUTSIDE RECORDS SUMMARY | 2025-10-10 07:57 | XMS_ITS | Clinical Summary ---
Author Organization [facility] Address [address] [place] [address] Care Team Providers Care Manager Custom Name Role Phone Unavailable Primary Care Provider Unavailabl e Source Comments [facility],non-owned Affiliates and Associated Physician Practices is amultiple site organization consisting of ambulatory clinics and hospital sitesin [place], [place], [place] and [place]. This disclosure is being madepursuant to the Care Everywhere program and may not contain all information available regarding this patient. Last updated 18.[facility] Social History Tobacco Use Types Packs/Day Years Used Date Smoking Tobacco: Never Assessed Comments Unknown Sex and Gender Information Value Date Recorded Sex Assigned at Not on file Legal Sex Female 10:17 AM CDT Gender Identity Not on file Sexual Orientation Not on file Plan of Treatment Health Maintenance Due Date Last Done Comments COLOGUARD (AGES 45-75) - COL ON CA SCREENING 1965 COLON MONITORING 1965 COLONOSCOPY - COLON CA SCREENING 1965 CT COLONOGRAPHY - COLON CA SCREENING 1965 Colorectal Cancer Screening 1965 FIT - COLON CA SCREENING 1965 FLEX SIG - COLON CA SCREENING 1965 LIPID TESTING 1965 MAMMOGRAM 1965 HIV SCREENING 1980 HEPATITIS C SCREENING 11/20/1983 DTAP/TDAP/TD VACCINES (1 - Tdap) 1984 HEPATITIS B VACCINE (1 of 3 - 19+ 3-dose series) 1984 Cervical Cancer Screening 1986 PAP SMEAR 1986 PAP with HPV 1995 PNEUMOCOCCAL VACCINE 50+ (1 of 1 - PCV) 2015 ZOSTER VACCINE (1 of 2) 2015 DEPRESSION SCREENING 11/20/2024 COVID-19 VACCINE ( - 2024-2 6 season) 2025 INFLUENZA VACCINE (#1) 2025 HIB VACCINE Aged Out No longer eligi ble based on patient's age to complete this topic HPV VACCINE Aged Out No longer eligi ble based on patient's age to complete this topic MENINGOCOCCAL (Group B) VACC INE SHARED DECISION-MAKING Aged Out No longer eligibl e based on patient's age to complete this topic MENINGOCOCCAL GROUPS A/C/Y/W VACCINE Aged Out No longer eligible b ased on patient's age to complete this topic Insurance [facility]
--- NOTE | 2025-10-10 11:10 | S_PTH ---
PATIENT: Iris Claire LOC: [facility] U#:[id number] AGE/SX: 59/F ROOM: RE10/10/[address]: Antoinette Du MD : 1965 BED: DIS: 10/10/2025 SPEC #: [id number] RECD: 10/10/25 13:16 STATUS: LIANG ANDREWS #: [id number] ADRIANE: 10/10/25 11:[address]: Antoinette Du DEPT: [facility] Surgical RECD BY: Violet Stearns ENTERED: 10/10/25 13:17 SP TYPE: Surgical OTHR DR: Gustabo Ruelas, Tissues: A - Breast Biopsy B - Breast Biopsy Procedures: P63 Hematoxylin and Eosin Stain Gross and Microscopic Level 4
== END 2025-10-10 07:55 | disposition home or self-care (01) ==
PROVIDERS: PCP Hospitalist; Visit Provider Surgery
DX: D24.2 Benign neoplasm of left breast (principal); N63.25 Unspecified lump in the left breast, overlapping quadrants; R92.8 Other abnormal and inconclusive findings on diagnostic imaging of breast
CPT/HCPCS: 19083; 19084; 77065; 88305; 88342; A4648